=== PATIENT | female | born 1965 | race Caucasian/White ===

== ENCOUNTER → 2024-01-03 13:31 | Outpatient (CLI) | payer MEDICARE, MEDICAID, SELFPAY ==
[2024-01-03 16:25] LABS: Cancer Antigen 125 < 5.5 U/mL (0-35)
== END ==
PROVIDERS: PCP Physician Assistant; Referring Provider Obstetrics & Gynecology; Visit Provider Obstetrics & Gynecology
DX: D49.59 Neoplasm of unspecified behavior of other genitourinary organ (principal)
CPT/HCPCS: 36415; 86304; 86305

== ENCOUNTER 2024-03-20 07:48 | Day surgery (SDC) | payer MEDICARE, MEDICAID, SELFPAY ==
[2024-03-14 13:31] VITALS: BMI 32.8
[2024-03-20] VITALS (15 sets, daily range): BP systolic 108–150; BP diastolic 52–92; PULSE 75–101; RESP 12–22; TEMP 36.3–36.7; O2SAT 93–97; BMI 32.8
--- NOTE | 2024-03-20 | PATH_ITS ---
[facility] Accession Number: [id number] No. of containers..02 Tissue . 01 Material submitted: . PART A: body - BILATERAL FALLOPIAN TUBES AND LEFT OVARY PART B: endometrium - ENDOMETRIAL CURETTING . 01 Diagnosis: A. BILATERAL FALLOPIAN TUBES AND LEFT OVARY, LAPAROSCOPIC OOPHORECTOMY AND BILATERAL SALPINGECTOMY: Longer-described fallopian tube, complete cross-sections; negative for significant atypia; benign paratubal cysts present (up to 3 mm in greatest dimension). [place]-described fallopian tube, complete cross-sections; negative for significant atypia; benign paratubal cysts present (up to 3 mm in greatest dimension). Disrupted fragments of benign serous cystadenoma (aggregate measurement 54 x 54 x 17 mm); negative for borderline or malignant features. . B. ENDOMETRIAL CURETTING: Background poor tissue orientation and preservation artifact. One portion of squamous mucosa with focal cytologic atypia suggestive of, but not diagnostic of, low-grade squamous intraepithelial lesion / JUDI-1. Scant, poorly preserved glandular elements; suboptimal for evaluation of glandular hyperplasia or neoplasia due to scant endometrial stromal component. [facility] 03/24/2024 [facility] Local . 01 Comment: Part B: Due to the scant nature of well-preserved endometrial tissue in this biopsy, it may not be entirely patient support representative of this patient's endometrium; additional sampling could be considered, if clinically appropriate. . 01 Electronically signed: . Elida Lagunas MD, Pathologist NPI- [id number] . 01 Gross description: . A. Received in formalin with two patient identifiers and left ovary with bilateral fallopian tubes, are two unoriented, fimbriated fallopian tubes (7.2 x 0.5 cm and 6.7 x 0.4 cm). Both tubes have violaceous, smooth serosa with cystic structures up to 0.3 cm in greatest dimension filled with cloudy serous fluid. The lumens are stellate and unremarkable. . The fragment of presumed ovary weighs 12 grams and aggregates to 5.4 x 5.4 x 1.7 cm. The specimen is disrupted and membranous, consistent with cysts. One aspect of the largest fragment is inked blue. No areas of thickening or excrescences are identified. No normal ovarian parenchyma is identified. Die Repairer Forging sections are submitted as follows: A1: Longer fallopian tube to include one-half of bisected fimbriae and cross sections. A2: [place] fallopian tube to include one-half of bisected fimbriae and cross sections. A3-A7: Die Repairer Forging ovary. B. Received in formalin with two patient identifiers and endometrial curettage, are multiple hutchinson to brown soft tissue fragments received on friable Telfa paper aggregating to 1.3 x 0.3 x 0.1 cm. Filtered and submitted in B1. ([id number]) /MRV 03/21/2024 [facility] Local . 01 Microscopic: . An immunohistochemical stain for p16 is performed to evaluate for block reactivity. The control stained with appropriate reactivity. . RESULTS: Block B1 P16: Negative for block immunostaining. . The absence of p16 block immunostaining mitigates against the presence of high risk HPV DNA in this biopsy. . * This test was developed and the performance characteristics were validated by [employer]. It has not been cleared or approved by the U.S. Food and Drug Administration. . 01 Pathologist provided ICD-10: N95.0, N39.3, D49.59 . 01 CPT . 021083, 406161, R70233 Specimen Comment: A courtesy copy of this report has been sent to [facility] Performed at: [address], [place], [place] [id number] MD Justin Brooks MD Phone: [phone]
--- NOTE | 2024-03-20 08:29 | PM.PREOP ---
Pre-operative Note Interval Note History & Physical reviewed/Exam performed by Physician: Yes Changes to H&P: No H&P completed within 30 days and has changed as indicated here:: 03/10/24 ASA Class (for procedural sedation): II
[2024-03-20] MEDS: LACTATED RINGERS 1,000 ML 21 ML IV ×2 (08:30→11:16)
[2024-03-20] MEDS: CEFAZOLIN 2 GM/100 ML PREMIX 100 ML IV (09:10)
--- NOTE | 2024-03-20 09:39 | SUR.OPER ---
Lithotomy on padded OR bed. [place] Pad Positioner under torso. Head on pillow, arms padded and tucked at sides. Legs secured in padded yellow fins stirrups.
[2024-03-20] MEDS: BUPIVACAINE 0.25% W/ EPI 30 ML VIAL INJ (09:42)
--- NOTE | 2024-03-20 11:51 | SUR.OPER ---
pt padded right arm came untucked during case. Arm was re-tucked and no issues seen.
--- NOTE | 2024-03-20 12:19 | PM.OP.1 ---
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 without ELVER Surgeon: Emily Weiss Mobile Application Architect: Dilma Cosby Click Yes if Unassisted: No Anesthesia Type: General Operative Notes Findings: normal external female genitalia, perineum and anus parous cervix without visual abnormality no significant findings noted on hysteroscopy, bilateral ostia visualized, visual appearance that of endometrial atrophy gross laxity of anterior and posterior vaginal vanegas without urethral hypermobility intra-abdominal survey notable for large L ovarian neoplasm, cyst contents serous, no malignant features identified bilateral fallopian tubes grossly wnl upper abdominal survey grossly wnl Closure Type: primary Specimen(s): other (1) bilateral fallopian tubes, L ovary; 2) endometrial currettings ) Estimated Blood Loss (mL): 50 Procedure in detail: The patient was taken to the operating room, placed on the operating table in the supine position and intubated with ETT.? The patient was then placed in the lithotomy position with her legs in Konstantin stirrups.? The patient was then examined under anesthesia with the above findings, then prepped and draped in a sterile fashion.? A hall catheter was placed.? Time out was performed. A sterile sponge stick was placed in the vagina for atraumatic uterine manipulation. A 5mm incision was made infraumbilically and abdominal entry was achieved under direct visualization using the 5mm VisaPort trocar.? Abdomen was insufflated to 15mmHg.? Two lateral 5-mm ports were placed in a similar manner under direct visualization.? The uterus was anteverted and abdominal survey was noted with findings as noted above. The left infundibulopelvic ligament was identified, elevated with atraumatic grasper, ligated and transected using the Powerseal. The L fallopian tube was further dissected away from the mesosalpinx to the level of cornua. The fallopian tube was then amputated at the level of the cornua and the L adnexal complex was placed anteriorly. Attention was then turned to the R where salpingectomy was again performed in similar fashion using the powerseal with amputation of the fallopian tube at the level of the cornua. All dissection beds were inspected and noted to be hemostatic. The infraumbilical 5mm trocar was removed and replaced the 11mm trocar for passage of the EndoCatch bag. The Endocatch bag was introduced into the abdomen under direct visualization and the specimen was placed in its entirety within. The pneumoperitoneum was vented and the 11mm trocar was removed allowing the endocatch bag to be brought to the level of the incision. The specimen contents were bluntly dissected allowing for release of serous-appearing cyst contents after which the specimen was removed within the bag and passed off the field for permanent study along with the R fallopian tube. The fascia of the infraumbilical incision was reapproximated using 0 vicryl on a UR6 needle under direct visualization. Pneumoperitoneum was restored and abdominal survey was completed once more via the R lateral side port with confirmed hemostasis of all dissection beds. With laparoscopy concluded the pneumoperitoneum was vented once more and the remaining lateral side port trocars were removed. The skin of the incisions was reapproximated with 4-0 monocryl in a subcuticular fashion followed by application of dermabond. Attention was then turned to vaginal portion of the case. A sterile speculum was inserted into the vagina.? The cervix was visualized and grasped anteriorly using a single tooth tenaculum.? The uterus sounded to 4cm and the cervical os was serially dilated using Alvarez dilators up to 17f to allow for passage of the hysteroscope.? The 5mm 70 degree hysteroscope was then inserted into the uterus with findings as noted.? The hysteroscope was removed and the uterus was sharply curetted until a gritty texture was noted throughout.? The tenaculum was removed and hemostasis was noted at insertion sites.? The speculum was removed and attention was then turned to the anterior and posterior repair. The anterior cervicovaginal apex was identified and the anterior vaginal mucosa was infiltrated with 10cc 0.25% lidocaine with epinephrine for purposes of hydro-dissection coupled with local hemostasis.? The vaginal mucosa was incised in the midline from the apex to the UV angle.? The vaginal mucosa was sharply dissected off of the endopelvic fascia to the sidewall.? The pubourethral fascia at the UV angle was identified and a Trisha plication stitch was placed.? The anterior endopelvic fascia adjacent to the pelvic sidewall was serially plicated with 2-0 vicryl in a distal to proximal fashion with noted excellent elevation of the bladder.? The observed reduction of cystocele the excess vaginal mucosa was trimmed, after which the incision was closed primarily with 2-0 vicryl in a running locked fashion. The posterior vaginal mucosa was infiltrated with 15cc of 0.25% lidocaine with epinephrine.? A V-incision was made at the posterior fourchette.? The posterior vaginal mucosa was incised vertically from hymen to the apex and the mucosa was dissected off the endopelvic fascia.? Rectal exam performed delineating borders of defect as well as confirming absence of enterocele; glove changed.? The posterior endopelvic fascia was then serially plicated using 2-0 vicryl with reduction of the rectocele.? The excess vaginal mucosa was then trimmed and reapproximated using 2-0 vicryl in a running locked fashion.? Rectal exam was once again performed confirming absence of suture within the rectal mucosa and satisfactory repair of the defect. At the end of case the vaginal introitus was able to easily accommodate 2 fingerbreadths without concern for iatrogenic stenosis. No expulsion of urine with crude maneuver at end of repair and decision made to not proceed with transvaginal midurethral sling. The vagina was packed with vaginal packing imed with 0.1% estrace. The hall was left in place for overnight urinary diversion. The patient had her legs taken out of stirrups, was awoken from anesthesia and transferred to PACU in stable condition. Complications: none Post-operative Condition: stable Disposition: Acute Care Plan for aftercare: anticipate dc to home POD1 pending clinical course, routine 2 and 6wk f/u in office as scheduled
[2024-03-20] MEDS: ACETAMINOPHEN IV 1,000 MG/100 ML VIAL 400 MG IV (12:20)
[2024-03-20] MEDS: ONDANSETRON 4 MG/2 ML INJ IV (12:26)
[2024-03-20] MEDS: HYDROMORPHONE 1 MG INJ IV ×2 (12:26→12:37)
[2024-03-20] MEDS: OXYCODONE IR 5 MG TABLET PO (12:26)
[2024-03-20] MEDS: LACTATED RINGERS 1,000 ML 42 ML IV (12:31)
[2024-03-20] MEDS: ALPRAZolam 0.25 MG TABLET PO (14:03)
[2024-03-20] MEDS: PRAMIPEXOLE 0.25 MG TABLET 0.75 MG PO ×2 (15:35→21:36)
[2024-03-20] MEDS: ZOLPIDEM 5 MG TABLET PO ×2 (15:35→21:39)
[2024-03-20] MEDS: CARBIDOPA-LEVODOPA 25/100 TABLET 1 EACH PO ×3 (15:35→21:36)
[2024-03-20] MEDS: ACETAMINOPHEN 325 MG TABLET 650 MG PO ×2 (15:37→19:57)
[2024-03-20] MEDS: SODIUM CHLORIDE 0.9% 1,000 ML 21 ML IV (15:38)
[2024-03-20] MEDS: KETOROLAC 30 MG/ML VIAL IV (18:43)
--- NOTE | 2024-03-20 23:52 | PC.NURSE ---
Addendum entered by Juliana Rosenberg R.N. 03/21/24 06:55: Vaginal packing and catheter removed by Dr. Weiss. Instructions give on prevention/sx of UTI. Discharge instructions given to patient by MD. Original Note: Patient is alert and oriented. Breath sounds CTA with RA sat of 96%; continuous oximetry in place. HRR. Denied nausea. BT present and is now passing flatus. Indwelling catheter is patent; urine is clear, light yellow. Vaginal packing intact. Is able to turn herself in bed. Has been out of bed ambulating in comer x 2 this shift and tolerates well; does use walker and provided SBA. Abdominal lap sites dermabonded and without redness. Refused to wear SCD's as not able to tolerate at this time; educated on prevention of DVT. Chronic numbness present in bilateral feet. Denied pain. Fall risk score is moderate but calls appropriately so bed alarm is not in use.
[2024-03-21] MEDS: KETOROLAC 30 MG/ML VIAL IV ×2 (00:27→06:23)
[2024-03-21] MEDS: CARBIDOPA-LEVODOPA 25/100 TABLET 1 EACH PO ×5 (00:27→09:37)
[2024-03-21 00:43] VITALS: BP 112/68; PULSE 78; TEMP 36.7; O2SAT 94
[2024-03-21] MEDS: ACETAMINOPHEN 325 MG TABLET 650 MG PO ×2 (01:08→07:09)
[2024-03-21 05:00] VITALS: BP 109/69; PULSE 68; RESP 16; TEMP 36.3; O2SAT 96
[2024-03-21 06:42] LABS: Add Manual Diff / Slide Review NO; Basophils Absolute Auto 100 /uL (0-100); Eosinophils Absolute Auto 100 /uL (0-450); Eosinophils Percent Auto 0.5 % (2-4); Hematocrit 36.6 % (36-46); Hemoglobin 12.1 g/dL (12.0-16.0); Lymphocytes Absolute Auto 2300 /uL (1100-4500); Lymphocytes Percent Auto 15.7 % (25-40); Mean Corpuscular HGB Conc 33.1 % (30-36); Mean Corpuscular Volume 87.5 fL (80-100); Monocytes Absolute Auto 1000 /uL (0-900); Neutrophils Absolute Auto 11000 /uL (1500-7000); Neutrophils Percent Auto 75.8 % (50-75); Platelet Count 298 X10^3/uL (150-400); Red Blood Cell Count 4.18 X10^6/uL (4.0-5.2); Red Cell Distribution Width 15.1 % (11.6-14.8); White Blood Cell Count 14.4 X10^3/uL (4.5-11.0)
--- NOTE | 2024-03-21 07:04 | PM.DS.1 ---
History of Present Illness History of Present Illness Date Patient Seen: 03/21/24 Time Patient Seen: 06:30 Date of Onset of Symptoms: 03/20/24 Chief complaint: Laparoscopic Oophorectomy/Colporrhaphy Narrative: POD1 s/p diagnostic laparoscopy with R salpingectomy/L salpingectomy-oophorectomy, hysteroscopy with dilation and curettage, anterior/posterior vaginal repair of symptomatic stage 2 POP. NAEON per RN, pain well controlled with analgesia as scheduled. Endorses mild cramping this AM at time of assessment, discussed this is likely secondary to vaginal packing/hall. Has been OOB, ambulating. Tolerating diet with n/v, +flatus Discharge Providers Provider Date of admission: 03/20/24 Discharge Date: 03/21/24 Primary care physician: Elizabeth Rios PA-C Discharge provider: Emily Weiss MD Summary Hospital Course Discharge Diagnosis: s/p diagnostic laparoscopy with R salpingectomy, L salpingo-oophorectomy (CARLOS neoplasm), hysteroscopy with diltation and curettage, anterior/posterior vaginal repair for management of symptomatic stage 2 POP Hospital Course: 58yo postmenopausal female presented to facility 03/20 for scheduled procedure (see operative dictation). Patient underwent procedure as scheduled without complication. Her deep brain stimulation for management of her Parkinson's disease was resumed in the immediate postoperative area. Home medications were resumed on arrival to acute care floor. Hall catheter and vaginal packing placed at time of procedure removed AM of POD1. Patient rapidly met all discharge milestones and was discharged to home on POD1 with routine precautions, close interval f/u in office as scheduled. Status at Discharge Cognitive/behavioral status at discharge: oriented Functional status at discharge: independent ambulation Overall status at discharge: patient is back to baseline Time Spent with Patient Time spent: Less than 30 minutes Exam Vital Signs (past 8 hours): - 03/21/24 00:43 03/21/24 05:00 Temperature 98.0 F 97.4 F L Pulse Rate 78 68 Respiratory Rate 16 Blood Pressure 112/68 109/69 Pulse Oximetry 94 96 Oxygen Flow Rate 0 0 Oxygen Delivery Method Room Air Oxygen Flow Rate 0 Const General: cooperative, healthy appearing, comfortable and well developed Nutritional Appearance: obese Orientation: alert, awake and oriented x3 Limitations: mental status not altered HENMT Mouth: moist mucous membranes Resp Effort & Inspection: normal respiratory effort and able to speak in complete sentences Cardio Pulses: normal peripheral pulses GI Inspection: normal to inspection and obesity Other: trocar incision sites c/d/i, minimal TTP noted adherent dried blood on infraumbilical incision External Female Exam: normal external appearance Other: vaginal packing removed, approx 75% saturated, no active bleeding observed hall removed without dificulty Skin General: no rashes or lesions noted Neuro General: patient alert, patient awake and patient oriented x3 Extrem General: normal to inspection Psych Mental Status: mental status grossly normal Judgment: judgment good Objective Labs 03/21/24 06:19 Labs: Laboratory Results - last 24 hr 03/21/24 06:19 WBC 14.4 H RBC 4.18 Hgb 12.1 Hct 36.6 MCV 87.5 MCH 29.0 MCHC 33.1 RDW 15.1 H Plt Count 298 Neut % (Auto) 75.8 H Lymph % (Auto) 15.7 L [place] % (Auto) 7.0 Eos % (Auto) 0.5 L Baso % (Auto) 1.0 Neut # (Auto) 48800 H Lymph # (Auto) 2300 [place] # (Auto) 1000 H Eos # (Auto) 100 Baso # (Auto) 100 PFSH Medical History (Updated 03/15/24 @ 13:39 by Emily Weiss MD) Tinea cruris Post-menopausal bleeding HLD (hyperlipidemia) Dermatitis Cervicalgia Insomnia Parkinson's disease ELVER (stress urinary incontinence, female) Ovarian neoplasm Surgical History (Updated 03/14/24 @ 13:43 by Ruby Go RN) History of gynecologic surgery Social History household members: spouse Smoking Status: Former smoker alcohol intake: current Discharge Assessment & Plan Assessment and Plan Assessment: 58yo postmenopausal female s/p diagnostic laparoscopy with RS/LSO, hysteroscopy with dilation and curettage, anterior/posterior vaginal repair Postop doing well, ambulating independently, voiding without difficulty, tolerating full diet, pain well controlled with oral analgesia strict activity/weight lifting restrictions reviewed patient counseled at length to avoid combining home low-dose alprazolam with oral oxycodone secondary to risk of respiratory depression f/u in office as scheduled Discharge Plan Discharge Plan Patient Disposition: Home Provider Discharge Comment: Nothing in the vagina for 6 weeks. No tampons, intercourse, douching, swimming in fresh water/pools/hot tubs. Tub baths are okay after the first 2 weeks if the tub is cleaned well first. Keep your abdominal incisions clean and dry, you may shower as normal. NO LIFTING over 10lbs to protect the vaginal incisions. Call your provider with any questions or concerns. Discharge orders & Medications Discharge Orders: Discharge (Order); Ordered 03/21/24 Ordered By: Emily Weiss Prescriptions: New oxycodone 5 mg Tablet 5 mg PO Q6HR PRN (Reason: Pain, Severe (7-10)) Qty: 15 0RF sennosides [senna] 8.6 mg tablet 8.6 mg PO DAILY Qty: 30 0RF Rx Instructions: take one tablet by mouth daily Continued alprazolam 0.25 mg tablet 0.25 mg PO TID PRN (Reason: Anxiety) carbidopa-levodopa 25-100 mg tablet 1 tab PO Q3H estradiol 2 mg tablet 2 mg PO DAILY nystatin 100,000 unit/gram cream 1 applic TOPICAL BID zolpidem 5 mg tablet 5 mg PO ONCE PM naproxen 500 mg tablet 500 mg PO BID progesterone micronized 100 mg capsule 100 mg PO ONCE PM rasagiline 1 mg tablet 1 mg PO DAILY pramipexole 0.75 mg tablet 0.75 mg PO 3XD Follow up/Referrals: Elizabeth Rios PA-C [Primary Care Provider] - Diet/Activity/Treatments Diet: Regular Skin/Wound/Dressing Care Report to your healthcare provider any signs of infection, such as:: chills, fever and increased pain Visit Report/Discharge Packet Stand Alone Forms: Patient Portal/API Discharge Data Primary Care Provider: Elizabeth Rios Attending Provider: Emily Weiss VTE Deep Vein Thrombosis/Pulmonary Embolism Present on Admission: No IH PROFEE Charge Codes Discharge inpatient/observation: [id number]
[2024-03-21 08:00] VITALS: BP 129/73; PULSE 87; RESP 14; TEMP 36.6; O2SAT 95
[2024-03-21] MEDS: PROGESTERONE, MICRONIZED 100 MG CAPSULE PO (08:56)
[2024-03-21] MEDS: PRAMIPEXOLE 0.25 MG TABLET 0.75 MG PO (08:56)
[2024-03-21] MEDS: SODIUM CHLORIDE 0.9% FLUSH 10 ML IV (08:56)
--- NOTE | 2024-03-21 10:11 | PC.NURSE ---
Pt is dressed and ready for discharge home with son. IV has been removed. Went over d/c instructions with Pt-discussed d/c meds, time of last dose, reviewed stroke education, s/s of infection, showering, lifting, drinking plenty of fluids to prevent constipation or dehydration, no driving while taking narcotics and follow up appointment. Pt denied further questions and will be taken out via w/c by JEWEL LATHE OPERATOR to POV with Son and all belongings.
--- NOTE | 2024-03-21 11:33 | CM.DANOTE ---
Initial DCP Assessment Visit Note Reviewed EMR and team rounds for status updates. DIAGNOSTIC ASSISTANT was unable to meet with pt f/f due to triage needs on the unit, and pt d/c'd early am. Pt lives independently at baseline with her spouse in their own home [place]. Her spouse was bedside this am and transported her home after she was medically cleared for home d/c. Payor: [facility] Attending: Dr. Weiss Pt is a 58 year-old F with a hx of Parkinson's disease, postmenopausal, with recent hx of postmenopausal bleeding, stress incontinence, and a L-sided ovarian neoplasm. Surgery was completed yesterday for a laparoscopic oophorectomy/and Right/Left sided salpingectomy hysterectomy without any complications. She had minimal pain that was well controlled, and no CM d/c assistance or resource needs were identified during her stay. Discharge Planning/Care Management Advanced directive, confirm from FAMILY Start: 03/20/24 13:43 Freq: Q24H Status: Discharge Protocol: Document 03/20/24 16:24 CJW (Rec: 03/20/24 16:28 CJW [id number]) Co-signed By Светлана Posada RN Advance Directive, confirm on record Time 16:28 Person contacted patient Copy received No CM Discharge Assessment Start: 03/21/24 11:25 Freq: Status: Active Protocol: Document 03/21/24 11:25 DPL (Rec: 03/21/24 11:32 DPL [id number]) Discharge Planning Assessment Assigned Palliative Senior Np Key JAXON Advance Directives? Yes Advance Directives on File No History Provided By Medical Record Expected Length of Stay 1 Has Patient been admitted in last 30 No days? Prior Living Arrangements House Household Members spouse Type of transporation used prior to Drives own vehicle admit Independent with ADL's Yes Is patient alert and oriented? Yes Comment N/A Caregiver for Another No Comment N/A Comment OP DISPENSING AUDIOLOGIST f/u postoperatively Barriers to Discharge No Discharge Plan Home Transportation Arrangement Spouse Referrals Initiated None needed Review Status In Process Please Provide Date Initial DC 03/21/24 Assessment Was Performed Pre-Anesthesia Assessment Start: 03/14/24 13:31 Freq: Status: Complete Protocol: Document 03/14/24 13:31 CAB (Rec: 03/14/24 13:54 CAB [id number]) Pre-Anesthesia Assessment PAC Comment Chart review Patient Information Reviewed Via Chart Review Primary Care Provider Elizabeth Rios Seen Specialist in Last 12 Months Yes Specialist Seen Car Rental Agent Primary Language Kyrgyz Global Engineering Manager Required No Height 167.64 cm Weight 92.079 kg Body Mass Index (BMI) 32.8 Anesthesia Review Requested No Billposting Supervisor No Smoking Status Former smoker Patient is completely paralyzed or No completely immobile Mental Status Oriented to own ability Comment Parkinson's - Dystonia Is patient on oxygen? No Hx Sleep Apnea No Currently Taking a Beta Michael No Anti-Coagulant Therapy No Cardiac Testing No Hx Pacemaker/ICD No Pacemaker Rep Required? No Cardiac Clearance Received No Genitourinary Symptoms Non-Menses Vaginal Bleeding Bladder Pattern Incontinent, Stress Urinary Catheter Present No Hx Urinary Self Catheterization No Diabetes No Patient No Lactating No Marital Status Lives With spouse Patient Discharge Plan Description Return Home Comment Pt lives on [facility]
== END 2024-03-21 10:26 | disposition home or self-care (01) ==
LOC: OR 07:50 → AC 07:50
PROVIDERS: PCP Physician Assistant; Referring Provider Obstetrics & Gynecology; Visit Provider Obstetrics & Gynecology
PROC: (CPT 58661; principal; 2024-03-20 09:45)
PROC: (CPT 58661; 2024-03-20 09:45)
PROC: 0TSD0ZZ Reposition Urethra, Open Approach (ICD-10-PCS; CPT 58661; 2024-03-20 09:45)
DX: N95.0 Postmenopausal bleeding (principal); N39.3 Stress incontinence (female) (male); D28.2 Benign neoplasm of uterine tubes and ligaments; N81.2 Incomplete uterovaginal prolapse; D49.59 Neoplasm of unspecified behavior of other genitourinary organ; N83.8 Other noninflammatory disorders of ovary, fallopian tube and broad ligament; G20.A1 Parkinson's disease without dyskinesia, without mention of fluctuations; Z96.82 Presence of neurostimulator; Z87.891 Personal history of nicotine dependence
CPT/HCPCS: 58661; 57260; 58558; 36415; 85025; J0131; J0690; J1100; J1171; J1885; J2405; J2704; J3010